=== PATIENT | female | born 1990 ===

== ENCOUNTER 2021-03-28 15:18 | Outpatient (CLI) | payer OTHER | END 2021-03-28 16:30 | disposition home or self-care (01) | LOC: PRENATAL 15:18 | PROVIDERS: ATTEND Obstetrics & Gynecology Maternal & Fetal Medicine | DX: O34.11 Maternal care for benign tumor of corpus uteri, first trimester (principal); O36.80X1 Pregnancy with inconclusive fetal viability, fetus 1; Z3A.12 12 weeks gestation of pregnancy ==

== ENCOUNTER 2021-06-02 12:52 | Outpatient (CLI) | payer OTHER | END 2021-06-02 14:30 | disposition home or self-care (01) | LOC: PRENATAL 12:52 | PROVIDERS: ATTEND Obstetrics & Gynecology Maternal & Fetal Medicine | DX: O35.0XX0 Maternal care for (suspected) central nervous system malformation in fetus, not applicable or unspecified (principal); O35.3XX0 Maternal care for (suspected) damage to fetus from viral disease in mother, not applicable or unspecified; O34.10 Maternal care for benign tumor of corpus uteri, unspecified trimester ==

== ENCOUNTER 2021-08-25 15:03 | Outpatient (CLI) | payer OTHER | END 2021-08-25 16:38 | disposition home or self-care (01) | LOC: PRENATAL 15:03 | PROVIDERS: ATTEND Obstetrics & Gynecology Maternal & Fetal Medicine | DX: O26.849 Uterine size-date discrepancy, unspecified trimester (principal); O35.0XX0 Maternal care for (suspected) central nervous system malformation in fetus, not applicable or unspecified; O36.8199 Decreased fetal movements, unspecified trimester, other fetus; O34.10 Maternal care for benign tumor of corpus uteri, unspecified trimester; Z3A.32 32 weeks gestation of pregnancy ==

== ENCOUNTER 2023-03-13 08:07 | Outpatient (CLI) | payer OTHER ==
[2023-03-13] MEDS ORDERED: HUMULIN N100 UNIT/2 SUBCUTANEO (09:06)
[2023-03-13] MEDS ORDERED: INSULIN SYRING1 EA29 SUBCUTANEO (09:07)
[2023-03-13] MEDS ORDERED: ALCOHOL PADS1 EACH TOP (09:08)
== END 2023-03-13 08:08 | disposition home or self-care (01) ==
LOC: PRENATAL 08:07
PROVIDERS: ATTEND Obstetrics & Gynecology Maternal & Fetal Medicine
DX: O36.80X0 Pregnancy with inconclusive fetal viability, not applicable or unspecified (principal); O26.859 Spotting complicating pregnancy, unspecified trimester; O24.319 Unspecified pre-existing diabetes mellitus in pregnancy, unspecified trimester; O34.10 Maternal care for benign tumor of corpus uteri, unspecified trimester; Z3A.01 Less than 8 weeks gestation of pregnancy

== ENCOUNTER → 2023-04-12 09:45 | Outpatient (CLI) | payer OTHER ==
[~2023-04-12 09:45] MED LIST: ALCOHOL PADS1 EACH TOP; HUMULIN N100 UNIT/2 SUBCUTANEO; INSULIN SYRING1 EA29 SUBCUTANEO
== END | disposition home or self-care (01) ==
LOC: PRENATAL 09:45
PROVIDERS: ATTEND Obstetrics & Gynecology Maternal & Fetal Medicine
DX: O36.80X0 Pregnancy with inconclusive fetal viability, not applicable or unspecified (principal); Z36.82 Encounter for antenatal screening for nuchal translucency; Z36.9 Encounter for antenatal screening, unspecified; O24.319 Unspecified pre-existing diabetes mellitus in pregnancy, unspecified trimester; O34.10 Maternal care for benign tumor of corpus uteri, unspecified trimester; Z3A.11 11 weeks gestation of pregnancy

== ENCOUNTER → 2023-06-13 14:38 | Outpatient (CLI) | payer OTHER | END | disposition home or self-care (01) | LOC: PRENATAL 14:38 | PROVIDERS: ATTEND Obstetrics & Gynecology Maternal & Fetal Medicine | DX: O35.3XX0 Maternal care for (suspected) damage to fetus from viral disease in mother, not applicable or unspecified (principal); O44.00 Complete placenta previa NOS or without hemorrhage, unspecified trimester; O24.319 Unspecified pre-existing diabetes mellitus in pregnancy, unspecified trimester; O34.10 Maternal care for benign tumor of corpus uteri, unspecified trimester; Z3A.19 19 weeks gestation of pregnancy ==